=== PATIENT | male | born 1980 | race Caucasian/White ===

== ENCOUNTER 2018-03-05 00:41 | Emergency (ER) | payer SELFPAY ==
[2018-03-05 00:44] VITALS: Ht 165.1 cm
[2018-03-05 01:45] LABS: CALCIUM 9.4 mg/dL (8.5-10.1); CARBON DIOXIDE 27.6 mmol/L (21-32); CHLORIDE SERUM 98 mmol/L (98-107); CREATININE SERUM 0.7 mg/dL (0.7-1.3); GFR1 > 60 mL/min; GLUCOSE SERUM 119 mg/dL (74-106); POTASSIUM SERUM 3.3 mmol/L (3.5-5.1); SODIUM SERUM 135 mmol/L (136-145)
[2018-03-05 01:49] LABS: ALBUMIN 4.2 g/dL (3.4-5.0); ALKALINE PHOSPHATASE 137 U/L (46-116); ALT/SGPT 92 U/L (16-63); AST/SGOT 159 U/L (15-37); BILIRUBIN TOTAL 0.86 mg/dL (0.20-1.00); LIPASE 336 IU/L (73-393)
[2018-03-05 01:50] LABS: BASOPHIL % 0.8 % (0-2); PLATELET COUNT 57 x10^3mcL (130-400); RED CELL DISTRIBUTION WIDTH 13.4 % (11.5-14.5)
[2018-03-05 01:51] LABS: TOTAL PROTEIN, SERUM 9.4 g/dL (6.4-8.2)
[2018-03-05 02:36] VITALS: BP 118/78
== END 2018-03-05 02:36 | disposition home or self-care (01) ==
LOC: ED 00:41
PROVIDERS: Emergency Medicine
DX: K29.20 Alcoholic gastritis without bleeding (principal); F10.239 Alcohol dependence with withdrawal, unspecified; F10.20 Alcohol dependence, uncomplicated
CPT/HCPCS: C9113; J2060; J2405; J3411; J3490; J7030